=== PATIENT | female | born 1980 | race African-American/Black ===

== ENCOUNTER 2016-10-01 16:48 | Emergency (ER) | payer OTHER ==
[~2016-10-01] VITALS: Ht 154.9 cm; Wt 64.0 kg
[~2016-10-01 16:48] MED LIST: LEVO75TA7 PO
[2016-10-01] MEDS ORDERED: ONDANSETRON HCL 4MG/2ML VIAL IV STA (19:21)
[2016-10-01] MEDS ORDERED: KETOROLAC 30MG/ML VIAL IV STA (19:21)
[2016-10-01] MEDS ORDERED: MORPHINE SULFATE 4 MG/ML CPJ (NOT FOR IM USE) IV STA (19:21)
[2016-10-01] MEDS ORDERED: DIAZEPAM 2 MG TABLET PO ONE (19:30)
[2016-10-01 19:54] LABS: D-DIMER 0.3 mg/L FEU (<0.50); INR 1.1; PROTHROMBIN TIME 11.8 sec
[2016-10-01 19:55] LABS: ALANINE AMINOTRANSFERASE 10 IU/L (13-61); ALBUMIN 3.8 g/dL (3.4-5.0); CALCIUM 8.3 mg/dL (8.5-10.1); CARBON DIOXIDE 26 mEq/L (21-32); CHLORIDE 106 mEq/L (98-107); INDEX HEMOLYSI 1 (1-3); INDEX ICTERIC 1 (1-4); INDEX LIPEMIC 1 (1-3); LIPASE 131 IU/L (73-393); NT PRO B-TYPE NATRIURETIC PEP 40 pg/mL (5-125); TROPONIN I < 0.02 ng/mL (0.00-0.04); UREA NITROGEN BLOOD 8 mg/dL (7-21); eGFR > 60 mL/min (>60)
[2016-10-01 19:56] LABS: ANION GAP 15
[2016-10-01 19:57] LABS: DIFFERENTIAL COMMENT 0; EOSINOPHILS % 4.3 % (0.0-5.0); HEMATOCRIT. 31.8 % (36.0-48.0); HEMOGLOBIN. 10.3 g/dL (12.0-16.0); LYMPHOCYTES % 23.5 % (20.0-50.0); MEAN CORPUSCULAR HGB CONC 32.4 g/dL (31.0-37.0); MEAN CORPUSCULAR VOLUME 77.1 fL (81.0-99.0); MEAN PLATELET VOLUME 8.6 fl (7.4-10.4); NEUTROPHILS % 63.2 % (40.0-76.0); PLATELET 288 x1000/uL (130-400); RED BLOOD CELL COUNT 4.12 mill/uL (4.2-5.4); RED CELL DISTRIBUTION WIDTH 16.1 % (11.6-14.6); WHITE BLOOD COUNT 4.7 x1000/uL (4.5-11.0)
[2016-10-01 20:29] LABS: HCG SCREEN NEGATIVE
[2016-10-01 21:05] VITALS: BP 134/89
== END 2016-10-02 11:57 | disposition home or self-care (01) ==
LOC: ER 17:00
DX: M54.12 Radiculopathy, cervical region (principal); R07.89 Other chest pain; F41.9 Anxiety disorder, unspecified; I10 Essential (primary) hypertension; Z79.899 Other long term (current) drug therapy
CPT/HCPCS: 36415; 71010; 80053; 83690; 83880; 84443; 84484; 84703; 85025; 85379; 85610; 85730; 93005; 96374; 96375; 99285; J1885; J2270; J2405; Z7610

== ENCOUNTER 2016-11-28 14:09 | Emergency (ER) | payer OTHER ==
[~2016-11-28] VITALS: Ht 154.9 cm; Wt 64.0 kg
[2016-11-28 16:00] VITALS: BP 128/77
[2016-11-28 17:32] LABS: CHLORIDE 106 mEq/L (98-107)
[2016-11-28 17:33] LABS: BASOPHILS % 1.1 % (0.0-2.0); EOSINOPHILS % 3.3 % (0.0-5.0); HEMATOCRIT. 31.4 % (36.0-48.0); HEMOGLOBIN. 10.1 g/dL (12.0-16.0); INR 1.1; MEAN CORPUSCULAR HEMOGLOBIN 24.6 pg (28.0-32.0); MEAN CORPUSCULAR VOLUME 76.8 fL (81.0-99.0); MEAN PLATELET VOLUME 8.1 fl (7.4-10.4); MONOCYTES % 7.1 % (2.0-8.0); NEUTROPHILS % 70.5 % (40.0-76.0); PLATELET 304 x1000/uL (130-400); PROTHROMBIN TIME 11.5 sec; RED BLOOD CELL COUNT 4.09 mill/uL (4.2-5.4); RED CELL DISTRIBUTION WIDTH 16.7 % (11.6-14.6)
[2016-11-28 17:38] LABS: HCG SCREEN NEGATIVE
[2016-11-28 17:44] LABS: CARBON DIOXIDE 26 mEq/L (21-32)
== END 2016-11-28 18:44 | disposition home or self-care (01) ==
LOC: ER 16:58
DX: E89.0 Postprocedural hypothyroidism (principal); I10 Essential (primary) hypertension; E83.51 Hypocalcemia; R20.9 Unspecified disturbances of skin sensation; M25.512 Pain in left shoulder; M25.511 Pain in right shoulder
CPT/HCPCS: 36415; 80048; 84443; 84703; 85025; 85610; 99284

== ENCOUNTER 2016-12-26 21:27 | Inpatient (IN) | payer OTHER ==
[~2016-12-26] VITALS: Ht 154.9 cm; Wt 61.7 kg
[2016-12-26] MEDS ORDERED: SODIUM CHLORIDE 0.9% 1,000 ML IV ONE (22:24)
[2016-12-26 22:45] LABS: BASOPHILS % 0.9 % (0.0-2.0); EOSINOPHILS % 4.5 % (0.0-5.0); HEMATOCRIT. 30.3 % (36.0-48.0); HEMOGLOBIN. 9.8 g/dL (12.0-16.0); LYMPHOCYTES % 22.2 % (20.0-50.0); MEAN CORPUSCULAR HEMOGLOBIN 24.6 pg (28.0-32.0); MEAN CORPUSCULAR VOLUME 75.7 fL (81.0-99.0); MEAN PLATELET VOLUME 7.7 fl (7.4-10.4); NEUTROPHILS % 63.4 % (40.0-76.0); PLATELET 268 x1000/uL (130-400); RED CELL DISTRIBUTION WIDTH 16.4 % (11.6-14.6)
[2016-12-26 22:53] LABS: HCG SCREEN NEGATIVE
[2016-12-26 22:54] LABS: D-DIMER 0.52 mg/L FEU (<0.50); INR 1.1; PARTIAL THROMBOPLASTIN TIME 25.4 sec (24.0-34.0); PROTHROMBIN TIME 11.8 sec
[2016-12-26 23:01] LABS: CLARITY URINE CLEAR (CLEAR); COLOR URINE YELLOW (YELLOW); GLUCOSE URINE NEGATIVE (NEGATIVE); KETONES URINE NEGATIVE (NEGATIVE); LEUKOCYTE ESTERASE URINE TRACE (NEGATIVE); NITRITE URINE NEGATIVE (NEGATIVE); OCCULT BLOOD URINE 2+ (NEGATIVE); PROTEIN URINE NEGATIVE (NEGATIVE); SPECIFIC GRAVITY URINE 1.011 (1.005-1.030); UROBILINOGEN URINE 0.2 E.U./dL (0.2-1.0)
[2016-12-26 23:01] LABS: CARBON DIOXIDE 28 mEq/L (21-32); CHLORIDE 105 mEq/L (98-107); CREATINE KINASE 85 IU/L (26-192)
[2016-12-26 23:03] LABS: TROPONIN I < 0.02 ng/mL (0.00-0.04)
[2016-12-26 23:08] LABS: CREATINE KINASE MB FRACTION 0.6 ng/mL (0.5-3.6)
[2016-12-26] MEDS ORDERED: POTASSIUM CHLORIDE 20MEQ TABLET SR PO ONE (23:45)
[2016-12-26] MEDS ORDERED: CEFTRIAXONE 1 G PREMIX 50 ML IV ONE (23:45)
[2016-12-27] MEDS ORDERED: ASPIRIN 81MG TABLET PO ONE (00:15)
[2016-12-27] MEDS ORDERED: FERR-63 PO (01:53)
[2016-12-27] MEDS ORDERED: DILT120C9 PO (01:54)
[2016-12-27 02:11] VITALS: BP 125/85
[2016-12-27 04:00] VITALS: BP 118/74
[2016-12-27] MEDS ORDERED: HYDROCODONE/ACETAMINOPHEN 5/325MG TABLET PO PRN (06:15)
[2016-12-27] MEDS: FERROUS SULFATE 325MG TABLET PO SCH ×2 (06:18→11:33)
[2016-12-27 06:37] LABS: BASOPHILS % 0.7 % (0.0-2.0); EOSINOPHILS % 4.5 % (0.0-5.0); HEMATOCRIT. 30.1 % (36.0-48.0); HEMOGLOBIN. 9.8 g/dL (12.0-16.0); LYMPHOCYTES % 25.5 % (20.0-50.0); MEAN CORPUSCULAR HEMOGLOBIN 24.6 pg (28.0-32.0); MEAN CORPUSCULAR VOLUME 75.9 fL (81.0-99.0); MEAN PLATELET VOLUME 8.2 fl (7.4-10.4); MONOCYTES % 9.8 % (2.0-8.0); NEUTROPHILS % 59.5 % (40.0-76.0); PLATELET 256 x1000/uL (130-400); RED BLOOD CELL COUNT 3.97 mill/uL (4.2-5.4); RED CELL DISTRIBUTION WIDTH 16.3 % (11.6-14.6)
[2016-12-27] MEDS ORDERED: LEVOTHYROXINE SODIUM 75MCG TABLET PO SCH (06:45)
[2016-12-27] MEDS ORDERED: OMEPRAZOLE 20MG CAPSULE EXTENDED RELEASE PO SCH (06:45)
[2016-12-27 07:05] LABS: CARBON DIOXIDE 25 mEq/L (21-32); CHLORIDE 108 mEq/L (98-107)
[2016-12-27 07:11] LABS: CREATINE KINASE 74 IU/L (26-192); CREATINE KINASE MB FRACTION 0.5 ng/mL (0.5-3.6); HDL CHOLESTEROL 54 mg/dL (40-59); LDL CHOLESTEROL 98 mg/dL (5-100); TROPONIN I < 0.02 ng/mL (0.00-0.04)
[2016-12-27 08:00] VITALS: BP 117/78
[2016-12-27] MEDS ORDERED: ASPIRIN 81MG TABLET PO SCH (09:00)
[2016-12-27] MEDS ORDERED: DILTIAZEM HCL 120MG CAPSULE CD 24HR PO SCH (09:00)
[2016-12-27 12:00] VITALS: BP 113/75
[2016-12-27 14:01] LABS: CREATINE KINASE 69 IU/L (26-192); CREATINE KINASE MB FRACTION < 0.5 ng/mL (0.5-3.6); TROPONIN I < 0.02 ng/mL (0.00-0.04)
[2016-12-27 16:00] VITALS: BP 120/70
[2016-12-27 16:52] VITALS: BP 120/70
== END 2016-12-27 17:45 | disposition home or self-care (01) | DRG 178 ==
LOC: ER 22:30 → INTOOBSV 23:39 → OBSVTOIN 23:39 → 5WST 23:39 → EDBEDREQ 23:42 → ENRESERV 12-27 01:16 → EDBEDREQ 12-27 02:04
PROVIDERS: ADMIT Internal Medicine; ATTEND Internal Medicine
DX: J98.51 Mediastinitis (principal); E46 Unspecified protein-calorie malnutrition; I11.9 Hypertensive heart disease without heart failure; N39.0 Urinary tract infection, site not specified; E87.6 Hypokalemia; E03.9 Hypothyroidism, unspecified; Z82.49 Family history of ischemic heart disease and other diseases of the circulatory system; E78.00 Pure hypercholesterolemia, unspecified; Z87.891 Personal history of nicotine dependence
CPT/HCPCS: 36415; 71010; 80053; 80061; 81001; 82550; 82553; 83690; 83735; 83880; 84443; 84484; 84703; 85025; 85379; 85610; 85730; 93005; 93306; 93970; 96365; 99285; G0378; J0696; J7030

== ENCOUNTER 2017-03-11 09:54 | Emergency (ER) | payer OTHER ==
[~2017-03-11] VITALS: Ht 154.9 cm; Wt 60.0 kg
[~2017-03-11 09:54] MED LIST changes: +DILT120C9 PO; +FERR-63 PO
[2017-03-11 16:06] VITALS: BP 146/92
[2017-03-11 16:45] LABS: BASOPHILS % 0.7 % (0.0-2.0); EOSINOPHILS % 2.1 % (0.0-5.0); HEMATOCRIT. 42.9 % (36.0-48.0); HEMOGLOBIN. 14.2 g/dL (12.0-16.0); LYMPHOCYTES % 19.7 % (20.0-50.0); MEAN CORPUSCULAR HEMOGLOBIN 28.5 pg (28.0-32.0); MEAN CORPUSCULAR VOLUME 86.1 fL (81.0-99.0); MEAN PLATELET VOLUME 8.1 fl (7.4-10.4); MONOCYTES % 5.4 % (2.0-8.0); NEUTROPHILS % 72.1 % (40.0-76.0); PLATELET 232 x1000/uL (130-400); RED BLOOD CELL COUNT 4.98 mill/uL (4.2-5.4); RED CELL DISTRIBUTION WIDTH 19.4 % (11.6-14.6)
[2017-03-11 16:48] LABS: CHLORIDE 102 mEq/L (98-107)
[2017-03-11 16:54] LABS: CARBON DIOXIDE 27 mEq/L (21-32)
[2017-03-11 16:55] LABS: HCG SCREEN NEGATIVE
== END 2017-03-11 18:26 | disposition home or self-care (01) ==
LOC: ER 13:44
DX: M54.12 Radiculopathy, cervical region (principal); R06.02 Shortness of breath; R20.0 Anesthesia of skin; I10 Essential (primary) hypertension; E03.9 Hypothyroidism, unspecified; D64.9 Anemia, unspecified; Z90.89 Acquired absence of other organs
CPT/HCPCS: 36415; 71010; 72040; 80053; 84703; 85025; 99285

== ENCOUNTER 2017-08-30 14:55 | Emergency (ER) | payer OTHER ==
[~2017-08-30] VITALS: Ht 154.9 cm; Wt 58.0 kg
[2017-08-30] MEDS ORDERED: DILT240C92 PO (15:04)
[2017-08-30 15:50] LABS: BASOPHILS % 0.8 % (0.0-2.0); EOSINOPHILS % 3.2 % (0.0-5.0); HEMATOCRIT. 38.2 % (36.0-48.0); LYMPHOCYTES % 26.2 % (20.0-50.0); MEAN CORPUSCULAR HEMOGLOBIN 30.1 pg (28.0-32.0); MEAN CORPUSCULAR VOLUME 88.4 fL (81.0-99.0); MEAN PLATELET VOLUME 7.8 fl (7.4-10.4); MONOCYTES % 7.3 % (2.0-8.0); NEUTROPHILS % 62.5 % (40.0-76.0); PLATELET 243 x1000/uL (130-400); RED BLOOD CELL COUNT 4.32 mill/uL (4.2-5.4); RED CELL DISTRIBUTION WIDTH 12.9 % (11.6-14.6)
[2017-08-30 15:56] LABS: CHLORIDE 106 mEq/L (98-107)
[2017-08-30 15:57] LABS: INR 1.1; PROTHROMBIN TIME 11.6 sec (9.4-11.6)
[2017-08-31 01:31] LABS: CLARITY URINE CLEAR (CLEAR); COLOR URINE YELLOW (YELLOW); KETONES URINE 3+ (NEGATIVE); LEUKOCYTE ESTERASE URINE NEGATIVE (NEGATIVE); NITRITE URINE NEGATIVE (NEGATIVE); OCCULT BLOOD URINE NEGATIVE (NEGATIVE); PH URINE 6.5 (4.5-8.0); PROTEIN URINE NEGATIVE (NEGATIVE); SPECIFIC GRAVITY URINE 1.027 (1.005-1.030); UROBILINOGEN URINE 0.2 E.U./dL (0.2-1.0)
[2017-08-31 01:41] LABS: *AMPHETAMINES SCREEN URINE NEGATIVE (NEGATIVE); *BARBITURATES SCREEN URINE NEGATIVE (NEGATIVE); *BENZODIAZEPINES SCREEN URINE NEGATIVE (NEGATIVE); *COCAINE SCREEN URINE NEGATIVE (NEGATIVE); CANNABINOID URINE SCREEN NEGATIVE (NEGATIVE); METHADONE URINE SCREEN NEGATIVE (NEGATIVE); OPIATES URINE SCREEN NEGATIVE (NEGATIVE); PHENCYCLIDINE URINE SCREEN NEGATIVE (NEGATIVE)
[2017-08-31 04:04] VITALS: BP 123/76
== END 2017-08-31 04:35 | disposition home or self-care (01) ==
LOC: ER 14:55
DX: R07.9 Chest pain, unspecified (principal); R10.11 Right upper quadrant pain; I10 Essential (primary) hypertension; E89.0 Postprocedural hypothyroidism
CPT/HCPCS: 36415; 71045; 76705; 80053; 80305; 81003; 81025; 83880; 84484; 85025; 85610; 93005; 99285

== ENCOUNTER 2017-11-19 18:12 | Emergency (ER) | payer OTHER ==
[~2017-11-19] VITALS: Ht 152.4 cm; Wt 57.0 kg
[~2017-11-19 18:12] MED LIST changes: +DILT240C92 PO
[2017-11-19 21:27] LABS: BASOPHILS % 0.4 % (0.0-2.0); EOSINOPHILS % 3.8 % (0.0-5.0); HEMATOCRIT. 39.3 % (36.0-48.0); HEMOGLOBIN. 13.2 g/dL (12.0-16.0); LYMPHOCYTES % 20.5 % (20.0-50.0); MEAN CORPUSCULAR HEMOGLOBIN 29.7 pg (28.0-32.0); MEAN CORPUSCULAR VOLUME 88.6 fL (81.0-99.0); MEAN PLATELET VOLUME 8.1 fl (7.4-10.4); MONOCYTES % 8.7 % (2.0-8.0); NEUTROPHILS % 66.6 % (40.0-76.0); PLATELET 231 x1000/uL (130-400); RED BLOOD CELL COUNT 4.43 mill/uL (4.2-5.4); RED CELL DISTRIBUTION WIDTH 13.3 % (11.6-14.6)
[2017-11-19 21:29] LABS: CHLORIDE 105 mEq/L (98-107)
[2017-11-19 22:50] VITALS: BP 126/72
== END 2017-11-19 23:00 | disposition home or self-care (01) ==
LOC: ER 20:23
DX: R06.02 Shortness of breath (principal); R05 Cough; R06.00 Dyspnea, unspecified; D64.9 Anemia, unspecified; E03.9 Hypothyroidism, unspecified; I10 Essential (primary) hypertension; Z87.891 Personal history of nicotine dependence
CPT/HCPCS: 36415; 71045; 80053; 83880; 85025; 93005; 99285

== ENCOUNTER 2017-12-22 19:58 | Emergency (ER) | payer OTHER ==
[~2017-12-22] VITALS: Ht 154.9 cm; Wt 57.0 kg
[2017-12-22 20:23] VITALS: BP 132/79
[2017-12-22] MEDS ORDERED: LORAZEPAM 2MG/ML CPJ IV ONE (21:45)
[2017-12-22] MEDS ORDERED: IPRATROPIUM/ALBUTEROL 0.5-3(2.5)MG/3ML NEB HHN ONE (21:45)
[2017-12-22] MEDS ORDERED: PREDNISONE 20MG TABLET PO ONE (22:00)
[2017-12-22] MEDS ORDERED: AZITHROMYCIN 500 MG TABLET PO ONE (22:00)
[2017-12-22] MEDS ORDERED: LORAZEPAM 1MG TABLET PO ONE (22:30)
[2017-12-22 22:54] LABS: *AMPHETAMINES SCREEN URINE NEGATIVE (NEGATIVE)
[2017-12-22 22:55] LABS: *BARBITURATES SCREEN URINE NEGATIVE (NEGATIVE); *BENZODIAZEPINES SCREEN URINE NEGATIVE (NEGATIVE); *COCAINE SCREEN URINE NEGATIVE (NEGATIVE); METHADONE URINE SCREEN NEGATIVE (NEGATIVE); OPIATES URINE SCREEN NEGATIVE (NEGATIVE)
[2017-12-22 22:56] LABS: CANNABINOID URINE SCREEN NEGATIVE (NEGATIVE); PHENCYCLIDINE URINE SCREEN NEGATIVE (NEGATIVE)
[2017-12-22 23:07] LABS: BASOPHILS % 0.8 % (0.0-2.0); EOSINOPHILS % 4.5 % (0.0-5.0); HEMATOCRIT. 38.3 % (36.0-48.0); HEMOGLOBIN. 12.8 g/dL (12.0-16.0); MEAN CORPUSCULAR HEMOGLOBIN 29.8 pg (28.0-32.0); MEAN PLATELET VOLUME 7.9 fl (7.4-10.4); MONOCYTES % 6.1 % (2.0-8.0); NEUTROPHILS % 64.6 % (40.0-76.0); PLATELET 229 x1000/uL (130-400); RED BLOOD CELL COUNT 4.31 mill/uL (4.2-5.4); RED CELL DISTRIBUTION WIDTH 13.5 % (11.6-14.6)
[2017-12-22 23:10] LABS: CHLORIDE 106 mEq/L (98-107)
[2017-12-22 23:14] LABS: ETHANOL BLOOD < 10 mg/dL; INR 1.1; PROTHROMBIN TIME 11.5 sec (9.4-11.6)
[2017-12-22 23:16] LABS: HCG SCREEN NEGATIVE
== END 2017-12-23 01:27 | disposition home or self-care (01) ==
LOC: ER 21:00
DX: R06.02 Shortness of breath (principal); J40 Bronchitis, not specified as acute or chronic; R07.89 Other chest pain; I10 Essential (primary) hypertension; F45.8 Other somatoform disorders; Z87.891 Personal history of nicotine dependence
CPT/HCPCS: 36415; 71045; 80053; 80305; 83880; 84443; 84484; 84703; 85025; 85610; 93005; 94640; 99285; G0482; J7512; J7620

== ENCOUNTER 2019-09-24 12:56 | Emergency (ER) | payer OTHER ==
[~2019-09-24] VITALS: Ht 165.1 cm; Wt 62.0 kg
[~2019-09-24 12:56] MED LIST changes: +DILT120C30 PO; -DILT120C9 PO
[2019-09-24 15:17] LABS: CLARITY URINE CLOUDY (CLEAR); COLOR URINE OTHER (YELLOW); KETONES URINE NEGATIVE (NEGATIVE); LEUKOCYTE ESTERASE URINE NEGATIVE (NEGATIVE); NITRITE URINE NEGATIVE (NEGATIVE); OCCULT BLOOD URINE NEGATIVE (NEGATIVE); PH URINE 6.5 (4.5-8.0); PROTEIN URINE NEGATIVE (NEGATIVE); SPECIFIC GRAVITY URINE 1.004 (1.005-1.030); UROBILINOGEN URINE 0.2 E.U./dL (0.2-1.0)
[2019-09-24 15:30] VITALS: BP 130/89
== END 2019-09-24 15:53 | disposition home or self-care (01) ==
LOC: ER 12:56
DX: B34.9 Viral infection, unspecified (principal); R07.89 Other chest pain
CPT/HCPCS: 71045; 81003; 81025; 93005; 99285